=== PATIENT | male | born 1975 | race African-American/Black ===

== ENCOUNTER 2024-04-29 18:53 | Emergency (ER) | payer SELFPAY ==
[~2024-04-29] VITALS: Ht 170.2 cm; Wt 127.2 kg
[2024-04-29 19:10] VITALS: BP 178/120; PULSE 93; RESP 18; TEMP 101.9; O2SAT 97
[2024-04-29] MEDS: IBUPROFEN 600 MG TAB PO ONE (19:32)
[2024-04-29] MEDS: ACETAMINOPHEN EXTRA STRENGTH 500 MG TAB PO ONE (19:33)
[2024-04-29 20:20] LABS: APPEARANCE,URINE SL CLOUDY (CLEAR); BILIRUBIN,URINE NEGATIVE (NEGATIVE); BLOOD, URINE 2+ (NEGATIVE); COLOR,URINE YELLOW (YELLOW); LEUKOCYTE ESTERASE ,URINE 2+ (NEGATIVE); NITRITE, URINE NEGATIVE (NEGATIVE); PH,URINE 8.5 (5.0-9.0); PROTEIN,URINE 1+ (NEGATIVE); UGLUCOSE NEGATIVE (NEGATIVE)
[2024-04-29 20:25] LABS: BACTERIA,URINE 1+ /HPF (None Seen); MUCUS,URINE None Seen /LPF (None Seen); SQUAMOUS EPITHELIAL CELL,UR 0-3 (FEW) /LPF (0-3 (FEW))
[2024-04-29 20:46] LABS: BASOPHILS # (AUTO) 0.1 K/uL (0.00-0.22); BASOPHILS % (AUTO) 0.6 % (0.0-2.0); HEMATOCRIT 39.1 % (36-52); HEMOGLOBIN 12.3 g/dL (12.0-18.0); LYMPHOCYTES # (AUTO) 2.2 K/uL (2.0-11.5); LYMPHOCYTES % (AUTO) 10.5 % (20.5-51.1); MEAN CORPUSCULAR HEMOGLOBIN 26 pg (27-31); MEAN CORPUSCULAR HGB CONC 32 g/dL (33-37); MEAN CORPUSCULAR VOLUME 82.5 fL (80-94); MONOCYTES # (AUTO) 1.5 K/uL (0.8-1.0); MONOCYTES % (AUTO) 7.5 % (1.7-9.3); NEUTROPHILS # (AUTO) 16.7 K/uL (1.8-7.7); NEUTROPHILS % (AUTO) 81.4 % (42.2-75.2); PLATELET COUNT (AUTO) 263 K/uL (140-450); RED BLOOD CELL COUNT(AUTO) 4.74 MIL/uL (4.20-6.10); RED CELL DISTRIBUTION WIDTH 15.5 % (11.6-13.7); WHITE BLOOD COUNT (AUTO) 20.5 K/uL (4.8-10.8)
[2024-04-29 21:10] LABS: ANION GAP 15.9 (8-16); CARBON DIOXIDE 23.8 mmol/L (21-32); CREATININE 1.1 mg/dL (0.6-1.3); POTASSIUM 3.7 mmol/L (3.5-5.1)
[2024-04-29 21:19] LABS: FLU A ANTIGEN negative (NEGATIVE); FLU B ANTIGEN NEGATIVE (NEGATIVE)
[2024-04-29] MEDS ORDERED: cefTRIAXone 1,000 MG VIAL ONE (21:30)
--- NOTE | 2024-04-29 21:34 | NUR ---
PT AMBULATORY TO BED 7 WITH EVEN AND STEADY GAIT.
--- NOTE | 2024-04-29 21:55 | NUR ---
PT TAKEN TO CT VIA WHEELCHAIR.
[2024-04-29 22:12] VITALS: O2SAT 98
--- NOTE | 2024-04-29 22:12 | NUR ---
48YO M BIB SELF C.O HOT FLASHES AND FREQUENT URINATION. PT DENIES PAIN AT THIS TIME. AXO4. DENIES ANY OTHER SYMPTOMS AT THIS TIME. CALL LIGHT WITHIN REACH. SAFETY MEASURES IN PLACE. NKDA PMHX: HTN
[2024-04-29 22:18] LABS: LACTIC ACID 0.7 mmol/L (0.4-2.0)
[2024-04-29] MEDS: NACL 0.9% 2,000 ML IV ONE (22:21)
[2024-04-29] MEDS ORDERED: CEFP200T20 PO (23:15)
[2024-04-29] MEDS ORDERED: ACET500T99 PO (23:15)
[2024-04-30 00:40] VITALS: BP 146/92; PULSE 70; RESP 18; TEMP 98.3; O2SAT 99
--- NOTE | 2024-04-30 00:40 | NUR ---
Patient discharged with v/s stable. Written and verbal after care instructions given and explained. Patient verbalized understanding. Ambulatory with steady gait. All questions addressed prior to discharge. Advised to follow up with PMD.
== END 2024-04-30 00:40 | disposition home or self-care (01) ==
LOC: MED 18:53
DX: N12 Tubulo-interstitial nephritis, not specified as acute or chronic (principal); I10 Essential (primary) hypertension; Z20.822 Contact with and (suspected) exposure to COVID-19; Z79.1 Long term (current) use of non-steroidal anti-inflammatories (NSAID); Z79.899 Other long term (current) drug therapy
CPT/HCPCS: 36415; 74176; 80048; 81001; 83605; 85025; 87040; 87086; 87186; 87426; 87491; 87804; 96361; 96365; 99285; J0696; J7030